=== PATIENT | female | born 1985 | race Caucasian/White ===

== ENCOUNTER 2022-09-14 11:25 | Outpatient (CLI) | payer MEDICAID | END 2022-09-14 23:59 | disposition critical access hospital (66) | LOC: EMS 11:25 | DX: R10.11 Right upper quadrant pain (principal) | CPT/HCPCS: A0425; A0427; A0999 ==

== ENCOUNTER 2022-09-14 12:00 | Emergency (ER) | payer MEDICAID ==
[2022-09-14 12:22] LABS: BASOPHILS % (AUTO) 0.3 %; EOSINOPHILS # (AUTO) 0.2 10^3/uL (0.0-0.7); EOSINOPHILS % (AUTO) 1.5 %; HCT - HEMATOCRIT 45.4 % (37.0-47.0); HGB - HEMOGLOBIN 14.9 g/dL (12.0-16.0); LYMPHOCYTES # (AUTO) 1.2 10^3/uL (1.5-3.5); LYMPHOCYTES % (AUTO) 12.2 %; MEAN CORPUSCULAR HEMOGLOBIN 30.5 pg (27.0-31.0); MEAN CORPUSCULAR HGB CONC 32.8 g/dL (32.0-36.0); MEAN PLATELET VOLUME 11.6 fL (7.9-10.8); MONOCYTES # (AUTO) 0.6 10^3/uL (0.0-1.0); MONOCYTES % (AUTO) 6.1 %; NEUTROPHILS # (AUTO) 8.1 10^3/uL (1.5-6.6); NEUTROPHILS % (AUTO) 79.5 %; PLT - PLATELET COUNT 235 10^3/uL (130-450); RED BLOOD COUNT 4.88 10^6/uL (4.20-5.40); RED CELL DISTRIBUTION WIDTH 11.9 % (12.0-15.0); WHITE BLOOD COUNT 10.2 x10^3/uL (4.8-10.8)
[2022-09-14] MEDS ORDERED: SUCRALFATE 1 GM/10 ML UDC PO STA (12:23)
[2022-09-14] MEDS ORDERED: HYDROmorphone 1 MG/ML CARPUJECT IVP STA (12:23)
[2022-09-14] MEDS ORDERED: MAG HYDROX/AL HYDROX/SIMETH 30 ML UDC PO STA (12:23)
[2022-09-14] MEDS ORDERED: FAMOTIDINE 20 MG TABLET PO STA (12:24)
[2022-09-14] MEDS ORDERED: PANTOPRAZOLE 40 MG VIAL IVP STA (12:24)
[2022-09-14] MEDS ORDERED: SODIUM CHLORIDE 0.9% 1,000 ML IV STA (12:24)
--- NOTE | 2022-09-14 12:24 | ED Physician Documentation ---
PD HPI ABD PAIN - Stated complaint Stated Complaint: N/V/D - Chief complaint Chief Complaint: Abd Pain - History obtained from History obtained from: Patient, Family, EMS - History of Present Illness Timing - details: Gradual onset Pain level max: 10 Pain level now: 10 Quality: Indigestion, Other (burning) Location: RUQ, Epigastric Radiation: Chest Associated symptoms: Nausea. No: Fever, Vomiting, Hematemesis, Diarrhea, Constipation, Melena, Hematochezia, Dysuria, Hematuria - Additional information Additional information: Patient is a 37-year-old female who presents to the emergency department complaining of abdominal pain. She has had epigastric pain that radiates up to her throat for the past several days described as burning. She was seen at the walk-in clinic a few days ago and given a GI cocktail which did help, but apparently was not placed on any medication for reflux. She states that the pain returned today. She went back to the walk-in clinic and they said it may be her gallbladder and she was sent here by EMS. She was given a dose of Toradol and 50 mcg of fentanyl prior to arrival. Rates the pain still is a 10 out of 10. Patient denies any possibility of . She has had a D&C in the past. Patient denies being currently. No fevers. 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 - Present Medications Home Medications: Ambulatory Orders Medication Instructions Recorded Confirmed Esomeprazole Magnesium [Nexium] 40 mg PO DAILY #30 cap 09/14/22 Famotidine [Pepcid] 20 mg PO BID #60 tablet 09/14/22 Oxycodone HCl/Acetaminophen 1 - 2 each PO Q6H PRN #14 tablet 09/14/22 [Percocet 5-325 mg Tablet] MDD 6 tabs - Allergies Allergies/Adverse Reactions: Allergies Allergy/AdvReac Type Severity Reaction Status Date / Time Penicillins Allergy Unknown Verified 09/14/22 12:08 - Living Situation Living Situation: reports: With family Living Arrangement: reports: At home - Social History Does the pt smoke?: No Does the pt drink ETOH?: Yes ETOH Use: Wine Does the pt have substance abuse?: No - Family History Family history: reports: Non contributory PD ED PE NORMAL - Vitals Vital signs reviewed: Yes - General General: Alert and oriented X 3, Well developed/nourished, Other (crying in pain) - HEENT HEENT: Moist mucous membranes - Neck Neck: Supple, no meningeal sign - Cardiac Cardiac: RRR, Strong equal pulses - Respiratory Respiratory: No respiratory distress, Clear bilaterally - Abdomen Abdomen: Other (TTP epigastric and RUQ, otherwise benign abd exam) - Back Back: No CVA TTP, No spinal TTP - Derm Derm: Warm and dry, No rash - Extremities Extremities: No edema, No calf tenderness / cord - Neuro Neuro: Alert and oriented X 3 - Psych Psych: Normal mood, Normal affect Results - Vitals Vitals: Vital Signs - 24 hr 09/14/22 09/14/22 09/14/22 12:05 14:11 15:23 Temperature 36.6 C Heart Rate 81 89 74 Respiratory 18 17 13 Rate Blood Pressure 121/84 H 107/80 O2 Saturation 100 100 100 Oxygen O2 Source Room air - Labs Labs: Laboratory Tests 09/14/22 09/14/22 09/14/22 12:17 12:17 14:20 WBC 10.2 RBC 4.88 Hgb 14.9 Hct 45.4 MCV 93.0 MCH 30.5 MCHC 32.8 RDW 11.9 L Plt Count 235 MPV 11.6 H Neut # (Auto) 8.1 H Lymph # (Auto) 1.2 L Reynolds # (Auto) 0.6 Eos # (Auto) 0.2 Baso # (Auto) 0.0 Absolute Nucleated RBC 0.00 Nucleated RBC % 0.0 Sodium 135 Potassium 4.3 Chloride 101 Carbon Dioxide 25 Anion Gap 9.0 BUN 15 Creatinine 0.7 Estimated GFR (MDRD) 93 Glucose 96 Calcium 9.1 Total Bilirubin 1.1 H AST 20 ALT 16 Alkaline Phosphatase 56 Total Protein 7.5 Albumin 4.5 Globulin 3.0 Albumin/Globulin Ratio 1.5 Lipase 31 Urine Color YELLOW Urine Clarity CLEAR Urine pH 8.5 H Ur Specific [place] 1.010 Urine Protein NEGATIVE Urine Glucose (UA) NEGATIVE Urine Ketones >=80 H Urine Occult Blood NEGATIVE Urine Nitrite NEGATIVE Urine Bilirubin NEGATIVE Urine Urobilinogen 0.2 (NORMAL) Ur Leukocyte Esterase NEGATIVE Ur Microscopic Review NOT INDICATED Urine Culture Comments NOT INDICATED Urine HCG, Qual NEGATIVE - Rads (name of study) RUQ US Relevant Findings:: Final report received, See rad report CT abd/pelvis Relevant Findings:: Final report received, See rad report PD Medical Decision Making - ED course Complexity details: reviewed results, re-evaluated patient, considered differential, d/w patient, d/w family ED course: 37-year-old female with what seems like gastritis versus reflux. No acute findings on ultrasound or CT scan of the abdomen and pelvis. No acute findings on laboratory testing including a normal CBC, normal CMP, normal lipase and urinalysis that shows mild dehydration. Feels much better after GI cocktail, pain medication and IV fluids. Also given IV Protonix. Given a dose of IV Dilaudid and we will place on a PPI, H2 kathie, Carafate and oral pain medication for home. Counseled regarding dietary changes. No evidence of perforation or free air. Recommend endoscopy as an outpatient. Patient counseled regarding signs and symptoms for which I believe and urgent re- evaluation would be necessary. Patient with good understanding of and agreement to plan and is comfortable going home at this time This document was made in part using voice recognition software. While efforts are made to proofread this document, sound alike and grammatical errors may occur. Departure - Departure Disposition: 01 Home, Self Care Clinical Impression: Gastritis Qualifiers: Gastritis type: unspecified gastritis Chronicity: acute Gastritis bleeding: without bleeding Qualified Code(s): K29.00 - Acute gastritis without bleeding Condition: Good Instructions: ED Gastritis Follow-Up: your,doctor in 1 week [Other] Surgical Care [Provider Group] Ruiz Peralta MD [Provider Admit Priv/Credential] - Prescriptions: Esomeprazole Magnesium [Nexium] 40 mg PO DAILY #30 cap Famotidine [Pepcid] 20 mg PO BID #60 tablet Oxycodone HCl/Acetaminophen [Percocet 5-325 mg Tablet] 1 - 2 each PO Q6H PRN #14 tablet MDD 6 tabs PRN Reason: pain Comments: Your ultrasound, CT scan and blood work did not show any acute abnormalities. Your has 3 and symptoms are consistent with gastritis/GERD. It is recommended that you have an endoscopy with general surgery, I have given 2 numbers for this. You may need a referral from your primary care provider. I have sent your prescriptions to [facility] in [place]. Please follow a very bland diet. Avoid alcohol, coffee, caffeine, anti-inflammatory medications such as Motrin, Aleve, aspirin etc. Please return if you worsen. I am prescribing a short course of narcotic pain medication for you. These are potentially dangerous and addictive medications that should be used carefully. These medications may constipate you. Take an nemo-zod-wsndluh stool softener (docusate) twice daily with plenty of water while taking these medications. If you go 24 hours without a bowel movement, take [id number]-[id number] miralax, per package instructions. Do not drink or drive while taking these medications. If you received narcotic or sedating medications while in the emergency depar tment, do not drive for 24 hours. Store this medication in a safe, secure place and out of reach of children. It is a violation of federal law to give or sell this medication to another person or to use in a manner other than prescribed. The ED will not refill narcotic prescriptions, including prescriptions lost or stolen. To dispose of unwanted medications: 1. [facility] [address] in [place] has a medication drop box. They accept prescription medications (in pill form) Wednesday through Wednesday 9:00 a.m. to 5:00 p.m. 2. The [facility] [employer] accepts prescription medications (in pill form only) for disposal year round. Call for more information. 3. Contact the [facility] for the next [facility] sponsored prescription drug collection event. , [phone], or [phone]; Discharge Date/Time: 09/14/22 15:27
[2022-09-14 12:35] LABS: ALBUMIN 4.5 g/dL (3.2-5.5); ALBUMIN/GLOBULIN RATIO 1.5 (1.0-2.2); BILIRUBIN,TOTAL 1.1 mg/dL (0.2-1.0); CALCIUM 9.1 mg/dL (8.5-10.3); CREATININE 0.7 mg/dL (0.4-1.0); POTASSIUM 4.3 mmol/L (3.5-5.0); TOTAL PROTEIN 7.5 g/dL (6.7-8.2)
[2022-09-14] MEDS ORDERED: iohexoL-300 100 ML VIAL ONE (13:41)
--- NOTE | 2022-09-14 14:18 | Ultrasound Report ---
PROCEDURE: Abdomen Limited INDICATIONS: RUQ abd pain TECHNIQUE: Real-time focused scanning was performed of the abdomen, with image documentation. COMPARISON: None FINDINGS: Liver: Normal is size and echotexture. No evidence of focal mass lesion. No intra hepatic biliary ductal dilatation. Gallbladder: Sonolucent without cholelithiasis. No gallbladder wall thickening. No pericholecystic fluid or Cash's sign. Common Bile Duct: 3.7 mm. Pancreas: Unremarkable as visualized. Right Kidney: Appropriate in size and echotexture. No evidence of hydronephrosis. No shadowing calc isabelle. No solid or cystic mass lesion. IMPRESSION: Unremarkable right upper quadrant ultrasound Reviewed by: Wilfrid Mera MD on 09/14/2022 1:17 PM [email or web address] Approved by: Wilfrid Mera MD on 09/14/2022 1:17 PM AKDT Station ID: [id number]
--- NOTE | 2022-09-14 14:25 | CT Report ---
PROCEDURE: CT abdomen and pelvis with contrast INDICATIONS: epigastric abd pain, neg US CONTRAST: 100ml omnipaque 300 TECHNIQUE: After the administration of contrast, 5 mm thick sections acquired from the diaphragms to the symphys is. 5 mm thick coronal and sagittal reformats were acquired. For radiation dose reduction, the foll owing was used: automated exposure control, adjustment of mA and/or kV according to patient size. COMPARISON: None. FINDINGS: Lower thorax: The lung bases are clear. Heart size normal. No hiatal hernia. Liver: Normal in size and attenuation. No contour deformity present. Biliary system: No calcified cholelithiasis or pericholecystic inflammation. No evidence of bile du ct dilatation. Pancreas: Unremarkable without mass or inflammation evident. Spleen: Splenomegaly, 12.8 cm Adrenals: Normal morphology and density. Reproductive system: Intrauterine device in place Urinary system: Normal renal size and attenuation. No renal calculi, hydronephrosis, or solid mass p resent. Urinary bladder unremarkable. Gastrointestinal system: The bowel appears unremarkable with no evidence of bowel obstruction or inf lammation. The stomach appears unremarkable. Appendix: No findings to suggest acute appendicitis. Peritoneal spaces: No mesenteric or retroperitoneal adenopathy. No free air. No free fluid. Vasculature: The IVC, aorta and iliac vasculature are unremarkable. Musculoskeletal: Normal bone mineralization. No acute fractures. Abdominal wall intact without levi dence of ventral or inguinal hernias. IMPRESSION: No acute CT findings in the abdomen and pelvis. Incidental mild splenomegaly, 12.8 cm Reviewed by: Wilfrid Mera MD on 09/14/2022 1:23 PM MICHELLE Approved by: Wilfrid Mera MD on 09/14/2022 1:23 PM AKDT Station ID: [id number]
[2022-09-14] MEDS ORDERED: oxyCODONE 5 MG TABLET PO STA (14:32)
[2022-09-14 14:38] LABS: BILIRUBIN,URINE NEGATIVE (NEGATIVE); GLUCOSE, URINE (UA) NEGATIVE (NEGATIVE); KETONES,URINE (UA) >=80 mg/dL (NEGATIVE); LEUKOCYTE ESTERASE, URINE NEGATIVE (NEGATIVE); NITRITE,URINE NEGATIVE (NEGATIVE); OCCULT BLOOD,URINE NEGATIVE (NEGATIVE); PH,URINE 8.5 PH (5.0-7.5); PROTEIN,URINE NEGATIVE (NEGATIVE); UROBILINOGEN,URINE 0.2 (NORMAL) E.U./dL (NORMAL)
[2022-09-14 14:39] LABS: CLARITY,URINE CLEAR (CLEAR)
[2022-09-14 14:40] LABS: HCG UR QUAL NEGATIVE
[2022-09-14 15:24] VITALS: BP 107/80
[2022-09-14] MEDS ORDERED: iohexoL-300 100 ML VIAL IVP ONE (16:17)
== END 2022-09-14 15:27 | disposition home or self-care (01) ==
LOC: EDUNIT# → ED 12:00
DX: K29.00 Acute gastritis without bleeding (principal)
CPT/HCPCS: 36415; 74177; 76705; 80053; 81003; 81025; 83690; 85025; 96374; 96375; 99284; A9270; J1170; Q9967; 81001; 87086

== ENCOUNTER 2022-10-16 08:17 | Day surgery (SDC) | payer MEDICAID ==
[2022-10-16] MEDS: LACTATED RINGERS 1,000 ML IV ONE ×2 (08:25→10:07)
[2022-10-16 08:36] LABS: HCG UR QUAL NEGATIVE
[2022-10-16] MEDS ORDERED: PROPOFOL 200 MG/20 ML VIAL IVP ONE ×2 (08:53→09:58)
[2022-10-16] MEDS ORDERED: MIDAZOLAM 2 MG/2 ML VIAL ONE (08:53)
[2022-10-16] MEDS ORDERED: LIDOCAINE-PF 2% 10 ML AMP SUBQ ONE (08:54)
--- NOTE | 2022-10-16 09:06 | ANESTHESIA ---
Pre-Anesthesia VS, & Labs - Diagnosis epigastric pain - Procedure EGD Height: 5 ft 1 in Weight (kg): 55 kg Body Mass Index: 22.8 BMI Classification: Normal - NPO >8 hours - Is Patient ?: No - Lab Results Lab results reviewed: Yes Home Medications and Allergies Home Medications: Ambulatory Orders Cetirizine HCl [Zyrtec] 10 mg PO DAILY 10/15/22 Sertraline HCl 200 mg PO DAILY 10/15/22 Spironolactone [Aldactone] 25 mg PO DAILY 10/15/22 buPROPion [Wellbutrin Xl] 150 mg PO DAILY 10/15/22 Cetirizine HCl [Zyrtec] 10 mg PO DAILY 10/15/22 Sertraline HCl 200 mg PO DAILY 10/15/22 Spironolactone [Aldactone] 25 mg PO DAILY 10/15/22 buPROPion [Wellbutrin Xl] 150 mg PO DAILY 10/15/22 Allergies/Adverse Reactions: Allergies Allergy/AdvReac Type Severity Reaction Status Date / Time latex Allergy Severe Anaphylaxis Verified 10/15/22 15:01 Penicillins Allergy Hives Verified 10/15/22 15:01 Anes History & Medical History - Anesthetic History Anesthesia Complications: reports: No previous complications - Medical History Cardiovascular: reports: None Pulmonary: reports: None Gastrointestinal: reports: GERD Urinary: reports: None Neuro: reports: None Musculoskeletal: reports: None Endocrine/Autoimmune: reports: None Blood Disorders: reports: None Skin: reports: None Smoking Status: Never smoker Psychosocial: reports: No issues indicated History of Cancer?: No - Surgical History General: reports: EGD Gynecologic: reports: Dilation and currettage Exam General: Alert, Oriented x3, Cooperative, No acute distress Dental: WNL Mouth Openin Fingerbreadth Neck Mobility: Normal Mallampati classification: I Thyromental Distance: 4-6 cm Mental/Cognitive Status: Alert/Oriented X3, Normal for patient Plan Anesthesia Type: General, Total IV Consent for Procedure(s) Verified and Reviewed: Yes Code Status: Attempt Resuscitation ASA classification: 2-Mild systemic disease Is this case an emergency?: No
[2022-10-16 11:09] VITALS: BP 102/68
--- NOTE | 2022-10-16 12:06 | ANESTHESIA POST OP EVALUATION ---
Anesthesia Post Eval - Post Anesthesia Eval Vitals: Last Vital Signs Temp 36.6 C 10/16/22 11:09 Pulse 82 10/16/22 11:09 Resp 16 10/16/22 11:09 BP 102/68 10/16/22 11:09 Pulse Ox 98 10/16/22 11:09 O2 Flow Rate CV Function Including HR & BP: Stable Pain Control: Satisfactory Nausea & Vomiting: Negative Mental Status: Baseline Respiratory Status: Airway Patent Hydration Status: Satisfactory Anesthesia Complications: None
== END 2022-10-16 08:18 | disposition home or self-care (01) ==
LOC: SDS 08:17
PROVIDERS: ATTEND Surgery
PROC: 0DB68ZX Excision of Stomach, Via Natural or Artificial Opening Endoscopic, Diagnostic (ICD-10-PCS; 2022-10-16)
PROC: 0DB28ZX Excision of Middle Esophagus, Via Natural or Artificial Opening Endoscopic, Diagnostic (ICD-10-PCS; 2022-10-16)
PROC: 0DB38ZX Excision of Lower Esophagus, Via Natural or Artificial Opening Endoscopic, Diagnostic (ICD-10-PCS; 2022-10-16)
PROC: 0DB98ZX Excision of Duodenum, Via Natural or Artificial Opening Endoscopic, Diagnostic (ICD-10-PCS; principal; 2022-10-16 09:30)
DX: K26.9 Duodenal ulcer, unspecified as acute or chronic, without hemorrhage or perforation (principal); K29.50 Unspecified chronic gastritis without bleeding; R07.2 Precordial pain; K21.9 Gastro-esophageal reflux disease without esophagitis; R10.13 Epigastric pain
CPT/HCPCS: 43239; 81025; J7120

== ENCOUNTER 2023-01-26 08:00 | Outpatient (CLI) | payer MEDICAID, OTHER | END 2023-01-26 23:59 | disposition home or self-care (01) | LOC: LAB.S 08:00 | PROVIDERS: ATTEND Physician Assistant | DX: L02.212 Cutaneous abscess of back [any part, except buttock and flank] (principal) | CPT/HCPCS: 87070; 87205 ==